=== PATIENT | male | born 1950 | race Caucasian/White ===

== ENCOUNTER 2017-02-28 13:38 | Day surgery (SDC) | payer OTHER ==
[~2017-02-28] VITALS: Ht 170.2 cm; Wt 83.6 kg
[2017-02-28] MEDS ORDERED: ATORVASTATIN (14:43)
[2017-02-28 14:47] VITALS: Ht 170.2 cm; Wt 83.6 kg
[2017-02-28] MEDS ORDERED: FENTAnyl 50 MCG/ML VIAL ONE (15:10)
[2017-02-28] MEDS ORDERED: LIDOCAINE 2% (SDV) 5 ML INJ ONE (15:10)
[2017-02-28] MEDS ORDERED: MIDAZOLAM 1 MG/ML 2 ML INJ ONE (15:10)
[2017-02-28] MEDS ORDERED: PROPOFOL 20 ML ONE (15:10)
[2017-02-28 15:18] VITALS: BP 128/72; PULSE 60; RESP 18
--- NOTE | 2017-02-28 15:38 | OPPN ---
Date/Time of Note Date/Time of Note DATE: 02/28/17 TIME: 15:37 Operative Report Preoperative Diagnosis History of colon polyps Postoperative Diagnosis Small sigmoid colon polyp was removed Occasional diverticulosis of the colon Internal hemorrhoids Operation/Procedure Performed Colonoscopy and biopsy Surgeon see signature line teacher's assistant None Anesthesia: MAC Estimated blood loss: none Transfusion Required none Specimen Sigmoid polyp biopsy Grafts/Implants none Complications none TC GASCA MD Feb 28, 2017 15:38
[2017-02-28 16:19] VITALS: BP 121/67; PULSE 52; RESP 20
--- NOTE | 2017-02-28 17:44 | GILP ---
DATE OF PROCEDURE: NAME OF PROCEDURES: Colonoscopy and biopsy. SURGEON: Carlos Hernández MD PREOPERATIVE DIAGNOSIS: History of colon polyps. POSTOPERATIVE DIAGNOSES: 1. Colonoscopy all the way to the cecum. 2. Small sigmoid colon polyp was removed using the biopsy forceps. 3. Occasional diverticulosis of the colon. 4. Internal hemorrhoids. INDICATION FOR THE PROCEDURE: Mr. Mary Goodman is a 66-year-old male patient who had history of colo n polyps. He needed followup colonoscopy. The procedure and possible complications are well explained to the patient, he understood and consen corinna to the procedure. DESCRIPTION OF PROCEDURE: Under the influence of anesthesia, the colonoscope was carefully introduc ed in the rectum. Under direct vision, it was advanced all the way to the cecum. FINDINGS: The patient had a small sigmoid colon polyp and it was removed using the biopsy forceps. He was noted to have occasional diverticulosis of the colon and internal hemorrhoids. He tolerated the procedure very well and there was no complication from the procedure. At the end o f the procedure, he was awake with stable vital signs and he was discharged home to the care of his family. IMPRESSION: 1. Colonoscopy all the way to the cecum. 2. Small sigmoid colon polyp was removed using the biopsy forceps. 3. Occasional diverticulosis of the colon. 4. Internal hemorrhoids. PLAN: 1. Await histopathology report. 2. High fiber diet. 3. Next screening colonoscopy in 10 years. Dictated By: CRALOS SHULTZ/VANCE Conf#: [id number] DID#: [id number]
== END 2017-02-28 15:53 | disposition home or self-care (01) ==
LOC: GIL 13:38
PROVIDERS: ATTEND Internal Medicine Gastroenterology
DX: D12.5 Benign neoplasm of sigmoid colon (principal); K57.90 Diverticulosis of intestine, part unspecified, without perforation or abscess without bleeding; K64.8 Other hemorrhoids; E78.5 Hyperlipidemia, unspecified
CPT/HCPCS: 45380; 88305; J2250; J3010